=== PATIENT | female | born 1985 | race Two or more races ===

== ENCOUNTER 2023-12-03 08:49 | Emergency (ER) | payer OTHER ==
[2023-12-03 09:00] VITALS: BP 133/82; PULSE 76; RESP 16; TEMP 98.3; BMI 25.8
== END 2023-12-03 09:49 | disposition home or self-care (01) ==
LOC: JERFT 08:49
DX: S60.561A Insect bite (nonvenomous) of right hand, initial encounter (principal); S60.562A Insect bite (nonvenomous) of left hand, initial encounter; R21 Rash and other nonspecific skin eruption; L29.9 Pruritus, unspecified; W57.XXXA Bitten or stung by nonvenomous insect and other nonvenomous arthropods, initial encounter
CPT/HCPCS: 99283-25